=== PATIENT | female | born 1955 | race African-American/Black ===

== ENCOUNTER 2022-10-22 04:29 | Emergency (ER) | payer OTHER, BC ==
[2022-10-22] MEDS ORDERED: FENTANYL 50 MCG/ML 1 ML VIAL ONE (04:50)
[2022-10-22 05:24] LABS: #Basophils 0.1 thou/uL (0.0-0.2); #Eosinphils 0.1 thou/uL (0.0-0.7); #Lymphocytes 1.5 thou/uL (1.20-3.40); #Monocytes 0.7 thou/uL (0.11-0.59); #Neutrophils 10.3 thou/uL (1.40-6.50); %Basophils 0.4 % (0.0-1.0); %Eosinophils 0.6 % (0.0-10.0); %Lymphocytes 11.7 % (21.0-51.0); %Monocytes 5.7 % (0.0-10.0); %Neutrophils 81.6 % (42.0-75.0); Hemoglobin 13.1 g/dL (12.0-16.0); Mean Corpuscular HGB CONC 30.6 g/dL (32.0-36.0); Mean Corpuscular Hemoglobin 26.3 pg (27.0-31.0); Mean Corpuscular Volume 86.1 fl (78.0-98.0); Mean Platelet Volume 7.5 fL (7.4-10.4); Platelet Count 297 10x3/uL (130-400); RBC Distribution Width 13.5 % (11.5-14.5); Red Blood Cell (RBC) Count 4.97 mill/uL (4.20-5.40); White Blood Cell (WBC) Count 12.6 10x3/uL (4.8-10.8)
[2022-10-22 05:40] LABS: INR-International Normal Ratio 0.9; PTT 26.5 sec (22.9-36.1); Prothrombin Time 12.7 sec (12.0-14.7)
[2022-10-22 05:42] LABS: ALT (SGPT) Less than 7 U/L (8-55); AST (SGOT) 17 U/L (5-34); Albumin 4.3 g/dL (3.4-4.8); Alkaline Phosphatase 118 U/L (40-110); Anion Gap 17 mmol/L (10-20); BUN (Urea Nitrogen) 15 mg/dL (9.8-20.1); Bilirubin, Total 0.5 mg/dL (0.2-1.2); Calc. Creatinine Clearance 0 mL/min (70-130); Carbon Dioxide 24 mmol/L (23-31); Chloride 102 mmol/L (98-107); Estimated GFR 76; Globulin 3.5 g/dL (2.4-3.5); Glucose 151 mg/dL (80-115); Potassium 3.8 mmol/L (3.5-5.1); Protein, Total 7.8 g/dL (5.8-8.1); Sodium 139 mmol/L (136-145)
[2022-10-22] MEDS ORDERED: Morphine 4 MG/ML VIAL ONE (06:31)
[2022-10-22] MEDS ORDERED: Ketorolac Tromethamine 30 MG/ML VIAL ONE (06:31)
[2022-10-22] MEDS ORDERED: Iopamidol 370 76% 100 ML VIAL ONE (15:14)
== END 2022-10-22 07:33 | disposition home or self-care (01) ==
LOC: ERS 04:29
DX: S29.011A Strain of muscle and tendon of front wall of thorax, initial encounter (principal); D72.829 Elevated white blood cell count, unspecified; I10 Essential (primary) hypertension; E66.9 Obesity, unspecified; W01.0XXA Fall on same level from slipping, tripping and stumbling without subsequent striking against object, initial encounter; Y92.091 Bathroom in other non-institutional residence as the place of occurrence of the external cause
CPT/HCPCS: 71260; 74177; 80053; 85025; 85610; 85730; 93005; 96361; 96374; 96375; J1885; J2270; J3010; Q9967